=== PATIENT | male | born 1955 | race Caucasian/White ===

== ENCOUNTER 2017-07-03 12:04 | Emergency (ER) | payer OTHER ==
[~2017-07-03] VITALS: Ht 177.8 cm; Wt 90.0 kg
[2017-07-03 12:09] VITALS: BP 146/91
[2017-07-03] MEDS ORDERED: HIV MEDS (17:15)
== END 2017-07-03 14:15 | disposition home or self-care (01) ==
LOC: ED 14:10
DX: S83.92XA Sprain of unspecified site of left knee, initial encounter (principal); W18.30XA Fall on same level, unspecified, initial encounter; Y99.8 Other external cause status; Y93.01 Activity, walking, marching and hiking; Y92.89 Other specified places as the place of occurrence of the external cause
CPT/HCPCS: 99284

== ENCOUNTER 2017-07-03 14:33 | Emergency (ER) | payer OTHER ==
[~2017-07-03] VITALS: Ht 175.3 cm; Wt 90.9 kg
[2017-07-03 15:33] LABS: BLOOD UREA NITROGEN 11 mg/dL (7-18)
[2017-07-03 15:49] LABS: HEMATOCRIT 51.3 % (39.2-51.8); HEMOGLOBIN 16.8 g/dL (13.7-18.0); WHITE BLOOD COUNT 6.6 x10^3/uL (3.4-10)
[2017-07-03 15:56] LABS: ANISOCYTOSIS 1+; DIFF TOTAL CELLS COUNTED 100 CELL DIFF
[2017-07-03 15:57] LABS: LARGE PLATELETS 1+; VERIFY COUNTS? YES
[2017-07-03] MEDS ORDERED: HIV MEDS (17:15)
[2017-07-03 17:18] VITALS: BP 155/92
== END 2017-07-03 18:05 | disposition home or self-care (01) ==
LOC: ED 18:02
DX: S83.92XA Sprain of unspecified site of left knee, initial encounter (principal); I10 Essential (primary) hypertension; W19.XXXA Unspecified fall, initial encounter; Y93.89 Activity, other specified; Y99.8 Other external cause status; Y92.89 Other specified places as the place of occurrence of the external cause
CPT/HCPCS: 36415; 80048; 82040; 85025; 93005; 99285